=== PATIENT | female | born 1985 | race Hispanic/Latino ===

== ENCOUNTER 2016-12-02 20:21 | Emergency (ER) | payer MEDICAID ==
[~2016-12-02] VITALS: Ht 157.5 cm; Wt 61.8 kg
[~2016-12-02 20:21] MED LIST: OXYC1TAB24 PO; [UNRECOGNIZED DRUG - OTHER]
[2016-12-02 20:30] VITALS: BP 134/79; PULSE 80; RESP 18; O2SAT 98
[2016-12-02] MEDS ORDERED: Ondansetron 8 mg ODT Tablet ONE (20:33)
[2016-12-02 21:28] LABS: BASOPHILS % (AUTO) 0.2 % (0-3); EOSINOPHILS % (AUTO) 0.2 % (0-5); MONOCYTES % (AUTO) 5.1 % (4-12); Mean Corpuscular Hemoglobin 31.4 pg (27.0-35.0); Mean Corpuscular Volume 92.5 fL (81-100); NEUTROPHILS % (AUTO) 79.2 % (40-74); Platelet Count 278 bil/L (150-400)
[2016-12-02 21:47] LABS: Magnesium 2.1 mg/dL (1.6-2.6)
[2016-12-02 22:25] LABS: APPEARANCE,URINE CLEAR (CLEAR,HAZY); COLOR,URINE YELLOW (YELLOW); OCCULT BLOOD,URINE TRACE (NEGATIVE)
[2016-12-02 22:26] LABS: UROBILINOGEN,URINE NORMAL (NORMAL)
--- NOTE | 2016-12-02 23:50 | ED.REPORT ---
HPI-Headache Date of Service Dec 02, 2016 ED Provider: Curt Canas DO This patient is a 31 year old female who presents ED complaining of a severe headache that started this morning. The patient was at school when her headache started, with it increasing in severity over the course of the day. She reports associated nausea and vomiting.. Pt. also complains of mild sore throat but denies fever, diarrhea. Patient has previously had headache but she has never had medical treatment for a headache. The patient is from [place] and she has never previously had CT scan of her head. The patient states that she did not take any medication for her headache today as she was concerned that she could be . Nursing Notes Stated Complaint: NAUSEA,HEADACHE Chief Complaint: Headache Nursing Notes Reviewed: Yes Allergies: Coded Allergies: No Known Allergies (Verified Allergy, Unknown, 12/02/16) Scheduled PRN oxyCODONE-Acetaminophen 5-325 mg (oxyCODONE-Acetaminophen 5-325 mg) 1 Each Tablet 1-2 TAB PO Q6H PRN PRN For Pain Miscellaneous Medications ([PNV with folate]) General Time Seen by MD: 23:50 Chief Complaint Headache Hx Obtained From: Patient Arrived By: Walk-in Sudden in Onset?: No Onset Occurred: 13 - 16 hours ago Symptom Duration: Since onset Location: : Temporal right Radiation: : Does not radiate Severity: Current: Mild Severity: Maximum: Mild Recent Healthcare: Recent doctor visit, Recent hospitalization Similar Sx Previous: Yes Past Medical History Past Medical History Ectopic Headaches, but hasn't seen a provider for them Past Surgical History None reported Smoking History Never Smoker Social History From [place] Alcohol Use: Denies alcohol use Drug Use: Denies drug use Other Social History: Good social support, , Lives with children Ambulatory Status Independent Review of Systems Constitutional: Denies: Fever Ears / Nose / Throat: Reports: Sore throat GI: Reports: Vomiting, Denies: Diarrhea Musculoskeletal: Denies: Neck pain Neurologic: Reports: Headache Complete sys rev & neg: except as marked. Physical Exam Initial Vital Signs Vital Signs (First) Date Time Temp Pulse Resp B/P Pulse Ox O2 Delivery O2 Flow Rate FiO2 12/02/16 20:30 36.8 80 18 134/79 98 Room Air Initial VS: Reviewed ENT: Mucous membranes moist, Conjunctiva normal, No scleral icterus Respiratory: Breath sounds normal, Clear to auscultation, No respiratory distress Cardiovascular: Regular rate & rhythm, Heart sounds normal, Intact distal pulses Abdomen / GI: Soft, Non-tender Extremities: Vascular intact, Neuro intact, No swelling, No tenderness Skin: Warm, Dry, No cyanosis Psychiatric: Mood/affect normal, Behavior normal, Normal thought content General/Constitutional: Awake, Alert Head / Eyes: Atraumatic, Normocephalic, PERRL, EOMI Neck: Atraumatic, Supple, No meningismus, Full range of motion Neurologic: Oriented X3, Speech NL ENT: Atraumatic, Airway patent, Mucous membranes moist, Tympanic membs NL Pharynx / Tonsils / Uvula: Positive: Pharyngeal erythema (Mild) Interpretation & Diagnostics Interpretation & Diagnostics: Urine : Negative. Lab Results Interpretation Result Diagram: 12/02/16211412/02/162114 Test 12/02/16 21:15 12/02/16 21:19 12/02/16 21:38 White Blood Count 13.3th/mm3 (3.8-10.1) Red Blood Count 4.42mil/mm3 (3.90-5.20) Hemoglobin 13.9g/dL (12.0-15.6) Hematocrit 40.9% (35.0-46.0) Mean Corpuscular Volume 92.5fL (81-100) Mean Corpuscular Hemoglobin 31.4pg (27.0-35.0) Mean Corpuscular Hemoglobin Concent 34.0% (32.0-37.0) Red Cell Distribution Width 12.3% (12.3-15.4) Platelet Count 278bil/L (150-400) Neutrophils (%) (Auto) 79.2% (40-74) Lymphocytes (%) (Auto) 15.1% (14-46) Monocytes (%) (Auto) 5.1% (4-12) Eosinophils (%) (Auto) 0.2% (0-5) Basophils (%) (Auto) 0.2% (0-3) Sodium Level 139mEq/L (134-144) Potassium Level 4.5mEq/L (3.5-5.2) Chloride Level 102mEq/L (97-108) Carbon Dioxide Level 23mmol/L (18-29) Blood Urea Nitrogen 14mg/dL (6-20) Creatinine 0.54mg/dL (0.57-1.00) Estimat Glomerular Filtration Rate 187mL/min (>59) Glucose Level 107mg/dL (60-99) Calcium Level 9.5mg/dL (8.5-10.1) Magnesium Level 2.1mg/dL (1.6-2.6) Total Bilirubin 0.9mg/dL (0.0-1.2) Aspartate Amino Transf (AST/SGOT) 21U/L (0-50) Alanine Aminotransferase (ALT/SGPT) 27U/L (0-32) Alkaline Phosphatase 58U/L (25-150) Total Protein 7.3g/dL (6.4-8.4) Albumin 4.5g/dL (3.4-5.0) Lipase 34U/L (13-60) Hold Vaughn Top Tube Received (Received) Hold Urine Received (Received) Urine Color Yellow (YELLOW) Urine Appearance Clear (CLEAR,HAZY) Urine pH 6.0 (5.0-8.0) Urine Specific [place] 1.015 (1.003-1.035) Urine Protein Negativemg/dL (NEG,TRACE) Urine Glucose (UA) Negativemg/dL (NEGATIVE) Urine Ketones Negativemg/dL (NEGATIVE) Urine Occult Blood Trace (NEGATIVE) Urine Nitrite Negative (NEGATIVE) Urine Bilirubin Negative (NEGATIVE) Urine Urobilinogen Normalmg/dL (NORMAL) Urine Leukocyte Esterase Trace (NEGATIVE) Urine RBC 0-2/hpf (0-2) Urine WBC 0-5/hpf (0-5) Urine Epithelial Cells Few/hpf (NONE-MOD) Urine Crystals None seen (NONE SEEN) Urine Bacteria Few/hpf (NONE-FEW) Urine Hyaline Casts None/lpf (NONE) Urine Granular Casts None seen (NONE SEEN) Urine Waxy Casts None seen (NONE SEEN) Urine Red Blood Cell Casts None seen (NONE SEEN) Urine White Blood Cell Casts None seen (NONE SEEN) Urine Mucus None seen (None Seen) Urine Trichomonas None seen (NONE SEEN) Urine Yeast None (NONE SEEN) Urine Culture Reflexed Indicated Pulse Oximetry Interpretation Pulse Oximetry Interpretation: 98% on room air Re-Eval/Medical Decision Med Decision/Clinical Course Healthy 31-year-old female with headache. Headache started unilateral and is now spread over most of her head. She denies fever. Headache was gradual not thunderclap. There was no associated vomiting. No syncope. She had a very benign physical exam without nuchal rigidity. My recommendations were for a noncontrast scan of her head and then consider lumbar puncture. Evidently the headache it resolved after some Toradol and she did not want to incur the cost of either these procedures. She is warned that subarachnoid hemorrhage intracranial neoplasm and meningitis can be life threatening or at least severely disabling. She made an informed decision not to have the CT. I certainly could not force imaging or lumbar puncture on her. I do recommend very close outpatient follow-up. My opinion she was of sound mind and body and able to make her own medical decisions. Source of Hx: Old records Re-Evaluation/Progress #1: Time of Eval: 12:25 Re-Evaluation/Progress Note: Suggested CT scan, pt. declined due to cost. She will receive toradol and then will be discharged. Pt. understands and agrees with plan. All questions have been addressed. Re-Evaluation/Progress #2: Time of Eval: 01:00 )( Patient Status: Condition improved Re-Evaluation/Progress Note: Pt. rechecked. Told pt. she'll be given Naproxen and Zofran. Ready for discharge. Pt. understands and agrees with plan. All questions have been addressed. Counseled Regarding: Diagnosis, Lab results, Need for follow-up, When/why to return to ED Discharge & Departure Impression: Primary Impression: Headache Headache type: unspecified Headache chronicity pattern: unspecified pattern Intractability: not intractable Qualified Code: R51 - Headache Disposition: Home Discharge Condition All VS Reviewed: Yes Condition: Stable Patient Instructions: Acute Headache (ED) Additional Instructions: Thank you for entrusting your care with us today. You will need a CAT scan of your brain if you have more headaches in the future. If you have neck stiffness or neck pain, you will need a spinal tap. Take Naproxen twice daily for pain as needed. Take 1 of Zofran every 8 hours as needed for nausea. You have been referred to [facility], follow up with them for further evaluation. Do not hesitate to return to the emergency room if you develop neck stiffness, neck pain, worsening headaches, or any other concerning or new symptoms. Referrals: [facility] Scribe Attestation Portions of this note were transcribed by Lorene Higgins and Janette Canales I, Dr. Canas personally performed the history, physical exam and medical decision-making ; I reviewed and confirmed the accuracy of the information in the transcribed note. Signed by: Lorene Higgins and Janette Canales, [place], 12/03/2016 and 0413 copies to: [facility] Curt Canas DO Dec 02, 2016 23:50 Irina Higgins [Lorene] Dec 03, 2016 00:00 Janette Canales Dec 03, 2016 04:14
[2016-12-03] MEDS ORDERED: Ketorolac 30 mg/mL 2 mL Inj IM ONE (00:30)
[2016-12-03 01:24] VITALS: PULSE 84; RESP 24; O2SAT 97
== END 2016-12-03 01:22 | disposition home or self-care (01) ==
LOC: SED 20:21
DX: R51 Headache (principal); R11.2 Nausea with vomiting, unspecified; J02.9 Acute pharyngitis, unspecified
CPT/HCPCS: 36415; 80053; 81000; 81025; 83690; 83735; 85025; 87086; 96372; 99284; J1885